=== PATIENT | female | born 1990 | race Caucasian/White ===

== ENCOUNTER 2017-05-24 03:34 | Emergency (ER) | payer BC, OTHER ==
[2017-05-24 04:40] LABS: Basophils % (A) 0 %; Eosinophils # (A) 0.2 k/uL (0-0.7); Eosinophils % (A) 2 %; HCT 31.5 % (34.0-46.0); HGB 10.2 gm/dL (11.4-16.0); Lymphocytes # (A) 1.3 k/uL (1.0-4.8); Lymphocytes % (A) 13 %; MCHC 32.5 g/dL (31.0-37.0); Mean Platelet Volume 7.4; Monocytes # (A) 0.5 k/uL (0-1.0); Monocytes % (A) 5 %; Neutrophils # (A) 7.9 k/uL (1.3-7.7); Neutrophils % (A) 78 %; Platelet Count 261 k/uL (150-450); RBC 3.93 m/uL (3.80-5.40); RDW 13.2 % (11.5-15.5)
[2017-05-24 04:45] LABS: Appearance,Urine Cloudy (Clear); Bacteria,Urine Rare /hpf; Bilirubin,Urine Negative (Negative); Blood,Urine Moderate (Negative); Color,Urine Yellow; Glucose,Urine (UA) Negative (Negative); Ketones,Urine Negative (Negative); Leukocyte Esterase,Urine Large (Negative); Mucus,Urine Rare /hpf; PH, Urine 6.5 (5.0-8.0); Protein,Urine 1+ (Negative); RBC,Urine 11 /hpf (0-5); Specific Gravity,Urine 1.024 (1.001-1.035); Squamous Epithelial Cell,Urine 17 /hpf (0-4); Urobilinogen,Urine <2.0 mg/dL (<2.0); WBC,Urine 15 /hpf (0-5)
[2017-05-24 04:49] LABS: ALT 16 U/L (9-52); AST 15 U/L (14-36); Alkaline Phosphatase 75 U/L (38-126); Amylase 40 U/L (30-110); Anion Gap 10 mmol/L; Blood Urea Nitrogen 12 mg/dL (7-17); Calcium 9.4 mg/dL (8.4-10.2); Carbon Dioxide 28 mmol/L (22-30); Chloride 102 mmol/L (98-107); Glucose 91 mg/dL (74-99); Lipase 29 U/L (23-300); Potassium 4.4 mmol/L (3.5-5.1); Sodium 140 mmol/L (137-145); Total Bilirubin 0.6 mg/dL (0.2-1.3); Total Protein 6.9 g/dL (6.3-8.2)
[2017-05-24] MEDS ORDERED: RX INFO: IV CONTRAST WAS GIVEN 1 EACH MISC MISCELLANE PRN (04:54)
[2017-05-24] MEDS ORDERED: KETOROLAC 30 MG/ML 1 ML VIAL IVP STA (05:30)
[2017-05-24] MEDS ORDERED: ONDANSETRON 4 MG/2 ML VIAL IVP STA (05:30)
--- NOTE | 2017-05-24 06:05 | CT ---
EXAM: CT Angiography Chest With Intravenous Contrast. CLINICAL HISTORY: Chest pain TECHNIQUE: Axial computed tomographic angiography images of the chest with intravenous contrast using pulmonary embolism protocol. CTDI is 70 mGy and DLP is 178.5 mGy-cm. This CT exam was performed using one or more of the following dose reduction techniques: automated exposure control, adjustment of the mA and/or kV according to patient size, and/or use of iterative reconstruction technique. MIP reconstructed images were created and reviewed. COMPARISON: No relevant prior studies available. FINDINGS: Pulmonary arteries: Unremarkable. No pulmonary embolism. Aorta: No acute findings. No thoracic aortic aneurysm. Lungs: Unremarkable. No mass. No consolidation. Pleural spaces: Unremarkable. No significant effusion. No pneumothorax. Heart: Unremarkable. No cardiomegaly. No significant pericardial effusion. No evidence of RV dysfunction. Bones: Unremarkable. No acute fracture. Lymph nodes: Unremarkable. No enlarged lymph nodes. IMPRESSION: Normal chest. No pulmonary embolism.
--- NOTE | 2017-05-24 06:43 | ED ---
General Adult HPI - General Source: patient Mode of arrival: ambulatory Limitations: no limitations - History of Present Illness Onset/Timin -: days(s) Location: chest Quality: sharp Consistency: intermittent Improves with: none Worsens with: other (Inspiration) Associated Symptoms: nausea/vomiting Treatments Prior to Arrival: none <Damián Pablo - Last Filed: 05/24/17 06:37> <Hayden Diaz - Last Filed: 05/24/17 08:01> - General Chief complaint: Abdominal Pain Stated complaint: Abd pain, painful breathing Time Seen by Provider: 05/24/17 03:53 - History of Present Illness Initial comments: This patient is a 26 year old woman who presents to be evaluated for pain to the right upper quadrant/right lower chest. She states that it started the previous night but was very mild. She describes it as intermittent, sharp pain that comes on when she takes a deep breath, and otherwise is maybe only minimally there. She she states that when she got ready go to work tonight the pain was more intense so she comes here to be evaluated. The patient also does have a little bit of associated nausea but has not had vomiting. She denies any change in bowel movements or urination. Last period was last month and normal. (Damián Pablo) - Related Data Home Medications Medication Instructions Recorded Confirmed No Known Home Medications [No 05/24/17 05/24/17 Known Home Medications] Allergies Allergy/AdvReac Type Severity Reaction Status Date / Time No Known Allergies Allergy Verified 05/24/17 03:39 Review of Systems ROS Other: All systems not noted in ROS Statement are negative. Constitutional: Denies: fever, chills Respiratory: Denies: cough, dyspnea, wheezes Cardiovascular: Reports: as per HPI, chest pain. Denies: palpitations, edema, syncope Gastrointestinal: Reports: as per HPI, abdominal pain, nausea. Denies: vomiting , diarrhea, melena, hematochezia Genitourinary: Denies: dysuria, hematuria, discharge, abnormal menses Musculoskeletal: Denies: back pain Skin: Denies: rash Neurological: Denies: headache, weakness, numbness <Damián Pablo - Last Filed: 05/24/17 06:37> ROS Other: All systems not noted in ROS Statement are negative. <Hayden Diaz - Last Filed: 05/24/17 08:01> ROS Statement: Those systems with pertinent positive or pertinent negative responses have been documented in the HPI. Past Medical History Past Medical History: No Reported History History of Any Multi-Drug Resistant Organisms: None Reported Past Surgical History: No Surgical Hx Reported Past Anesthesia/Blood Transfusion Reactions: No Reported Reaction Past Psychological History: No Psychological Hx Reported Smoking Status: Current every day smoker Past Alcohol Use History: None Reported Past Drug Use History: Marijuana - Past Family History Father Family Medical History: Diabetes Mellitus <BevDamián Filed: 05/24/17 06:37> General Exam Limitations: no limitations General appearance: alert, in no apparent distress Head exam: Present: atraumatic, normocephalic Eye exam: Present: normal appearance. Absent: scleral icterus, conjunctival injection ENT exam: Present: normal oropharynx Respiratory exam: Present: normal lung sounds bilaterally. Absent: respiratory distress, wheezes, rales, rhonchi, stridor, chest wall tenderness Cardiovascular Exam: Present: regular rate, normal rhythm, normal heart sounds. Absent: systolic murmur, diastolic murmur, rubs, gallop GI/Abdominal exam: Present: soft, tenderness, normal bowel sounds. Absent: distended, guarding, rebound, rigid, mass, pulsatile mass, hernia Extremities exam: Present: normal inspection, normal capillary refill. Absent: pedal edema, calf tenderness Back exam: Present: normal inspection. Absent: CVA tenderness (R), CVA tenderness (L) Neurological exam: Present: alert Skin exam: Present: warm, dry, intact, normal color. Absent: rash <BevDamián Filed: 05/24/17 06:37> Vital Signs 05/24/17 05/24/17 03:36 06:52 Temperature 97.9 F 99.0 F Pulse Rate 85 72 Respiratory 20 18 Rate Blood Pressure 122/67 102/53 O2 Sat by Pulse 100 98 Oximetry EKG Findings - EKG Results: EKG: interpreted by PALMIRA CLAY, sinus rhythm (Rate 66 bpm), normal axis, normal QRS, normal ST/T, no acute changes - VA, Pacemaker, Normal: Normal tracing: normal tracing <BevDamián Filed: 05/24/17 06:37> Medical Decision Making - Lab Data Result diagrams: 05/24/17 04:30 05/24/17 04:30 <Damián Pablo - Last Filed: 05/24/17 06:37> - Lab Data Result diagrams: 05/24/17 04:30 05/24/17 04:30 - Radiology Data Radiology results: report reviewed (Computed tomography scan of the chest negative for pulmonary embolism. Ultrasound of the abdomen shows no gallstones or evidence of cholecystitis.) <Hayden Diaz - Last Filed: 05/24/17 08:01> - Medical Decision Making Patient reevaluated and resting comfortably in bed. Patient states near symptom -free. Abdomen soft and nontender. No tenderness to right lower chest. Patient states significant improvement with Toradol. Patient states she believes symptoms were similar to a pulled muscle. Patient was updated on results and need for follow-up. (Hayden Diaz) - Lab Data Lab Results 05/24/17 05/24/17 05/24/17 Range/Units 03:45 03:45 04:30 WBC (3.8-10.6) k/uL RBC (3.80-5.40) m/uL Hgb (11.4-16.0) gm/dL Hct (34.0-46.0) % MCV (80.0-100.0) fL MCH (25.0-35.0) pg MCHC (31.0-37.0) g/dL RDW (11.5-15.5) % Plt Count (150-450) k/uL Neutrophils % % Lymphocytes % % Monocytes % % Eosinophils % % Basophils % % Neutrophils # (1.3-7.7) k/uL Lymphocytes # (1.0-4.8) k/uL Monocytes # (0-1.0) k/uL Eosinophils # (0-0.7) k/uL Basophils # (0-0.2) k/uL D-Dimer (<0.60) mg/L FEU Sodium 140 (137-145) mmol/L Potassium 4.4 (3.5-5.1) mmol/L Chloride 102 (98-107) mmol/L Carbon Dioxide 28 (22-30) mmol/L Anion Gap 10 mmol/L BUN 12 (7-17) mg/dL Creatinine 0.80 (0.52-1.04) mg/dL Est GFR (MDRD) Af Amer >60 (>60 ml/min/1.73 sqM) Est GFR (MDRD) Non-Af >60 (>60 ml/min/1.73 sqM) Glucose 91 (74-99) mg/dL Calcium 9.4 (8.4-10.2) mg/dL Total Bilirubin 0.6 (0.2-1.3) mg/dL AST 15 (14-36) U/L ALT 16 (9-52) U/L Alkaline Phosphatase 75 (38-126) U/L Total Protein 6.9 (6.3-8.2) g/dL Albumin 4.0 (3.5-5.0) g/dL Amylase 40 (30-110) U/L Lipase 29 (23-300) U/L Urine Color Yellow Urine Appearance Cloudy H (Clear) Urine pH 6.5 (5.0-8.0) Ur Specific [place] 1.024 (1.001-1.035) Urine Protein 1+ H (Negative) Urine Glucose (UA) Negative (Negative) Urine Ketones Negative (Negative) Urine Blood Moderate H (Negative) Urine Nitrite Negative (Negative) Urine Bilirubin Negative (Negative) Urine Urobilinogen <2.0 (<2.0) mg/dL Ur Leukocyte Esterase Large H (Negative) Urine RBC 11 H (0-5) /hpf Urine WBC 15 H (0-5) /hpf Ur Squamous Epith Cells 17 H (0-4) /hpf Urine Bacteria Rare H (None) /hpf Urine Mucus Rare H (None) /hpf Urine HCG, Qual Not Detected (Not Detectd) 05/24/17 05/24/17 Range/Units 04:30 04:30 WBC 10.0 (3.8-10.6) k/uL RBC 3.93 (3.80-5.40) m/uL Hgb 10.2 L (11.4-16.0) gm/dL Hct 31.5 L (34.0-46.0) % MCV 80.0 (80.0-100.0) fL MCH 26.0 (25.0-35.0) pg MCHC 32.5 (31.0-37.0) g/dL RDW 13.2 (11.5-15.5) % Plt Count 261 (150-450) k/uL Neutrophils % 78 % Lymphocytes % 13 % Monocytes % 5 % Eosinophils % 2 % Basophils % 0 % Neutrophils # 7.9 H (1.3-7.7) k/uL Lymphocytes # 1.3 (1.0-4.8) k/uL Monocytes # 0.5 (0-1.0) k/uL Eosinophils # 0.2 (0-0.7) k/uL Basophils # 0.0 (0-0.2) k/uL D-Dimer 1.71 H (<0.60) mg/L FEU Sodium (137-145) mmol/L Potassium (3.5-5.1) mmol/L Chloride (98-107) mmol/L Carbon Dioxide (22-30) mmol/L Anion Gap mmol/L BUN (7-17) mg/dL Creatinine (0.52-1.04) mg/dL Est GFR (MDRD) Af Amer (>60 ml/min/1.73 sqM) Est GFR (MDRD) Non-Af (>60 ml/min/1.73 sqM) Glucose (74-99) mg/dL Calcium (8.4-10.2) mg/dL Total Bilirubin (0.2-1.3) mg/dL AST (14-36) U/L ALT (9-52) U/L Alkaline Phosphatase (38-126) U/L Total Protein (6.3-8.2) g/dL Albumin (3.5-5.0) g/dL Amylase (30-110) U/L Lipase (23-300) U/L Urine Color Urine Appearance (Clear) Urine pH (5.0-8.0) Ur Specific [place] (1.001-1.035) Urine Protein (Negative) Urine Glucose (UA) (Negative) Urine Ketones (Negative) Urine Blood (Negative) Urine Nitrite (Negative) Urine Bilirubin (Negative) Urine Urobilinogen (<2.0) mg/dL Ur Leukocyte Esterase (Negative) Urine RBC (0-5) /hpf Urine WBC (0-5) /hpf Ur Squamous Epith Cells (0-4) /hpf Urine Bacteria (None) /hpf Urine Mucus (None) /hpf Urine HCG, Qual (Not Detectd) Disposition <Damián Pablo - Last Filed: 05/24/17 06:37> Time of Disposition: 08:01 <Hayden Diaz - Last Filed: 05/24/17 08:01> Clinical Impression: Chest wall pain Disposition: ADMITTED IP TO THIS [facility] Condition: Stable Instructions: Chest Pain (ED), Chest Wall Pain (ED) Additional Instructions: Please follow-up with primary care physician in the next couple of days for recheck. If discomfort continues she will need further evaluation. Return for increased pain, fever, vomiting, difficulty breathing, worsening or changing symptoms or other concerns. Referrals: Delmy Barrera MD [Primary Care Provider] - 1-2 days
--- NOTE | 2017-05-24 07:34 | US ---
EXAMINATION TYPE: US abdomen limited DATE OF EXAM: 05/24/2017 COMPARISON: CTA chest earlier today CLINICAL HISTORY: Pain, attention RUQ. pain, NPO EXAM MEASUREMENTS: Liver Length: 18.0 cm Gallbladder Wall: 0.3 cm CHD: 0.2 cm Right Kidney: 11.2 x 4.2 x 4.6 cm Pancreas: wnl Liver: appears upper limits in size Gallbladder: wnl Evidence for sonographic Johnson's sign: neg CBD: Obscured by overlying bowel gas CHD: wnl Right Kidney: No hydronephrosis or masses seen on images saved. IMPRESSION: No shadowing mobile gallstones or ultrasound evidence for acute cholecystitis.
[2017-05-24 08:23] VITALS: BP 122/62; PULSE 64; RESP 16; TEMP 97.8
== END 2017-05-24 08:22 | disposition home or self-care (01) ==
LOC: EC 03:34
DX: R07.89 Other chest pain (principal); R11.0 Nausea; F17.200 Nicotine dependence, unspecified, uncomplicated
CPT/HCPCS: 99284; 96374; 96375; 36415; 93005; 85379; 80053; 82150; 83690; 85025; 81001; 81025; 87086; 87077; 87186; 76705; 71275; Q9967; J2405; J1885

== ENCOUNTER 2018-02-25 18:14 | Emergency (ER) | payer OTHER ==
[2018-02-25 18:27] VITALS: BP 122/78; PULSE 81; RESP 18; TEMP 98.4
--- NOTE | 2018-02-25 19:13 | ED ---
Female Urogenital HPI - General Chief complaint: Urogenital Stated complaint: STD check Time Seen by Provider: 02/25/18 18:47 Source: patient, RN notes reviewed, old records reviewed Mode of arrival: ambulatory Limitations: no limitations - History of Present Illness Initial comments: 27-year-old female presents today with chief complaint of concern for positive ST testing. Patient reports he is told that someone she had intercourse with a few months ago had a positive HSV test which she reports no lesions. She denies any vaginal bleeding or discharge. Patient states that she is not currently . Last Menstrual Period: 01/21/18 - Related Data Home Medications Medication Instructions Recorded Confirmed No Known Home Medications 05/24/17 05/24/17 Allergies Allergy/AdvReac Type Severity Reaction Status Date / Time No Known Allergies Allergy Verified 02/25/18 18:23 Review of Systems ROS Statement: Those systems with pertinent positive or pertinent negative responses have been documented in the HPI. ROS Other: All systems not noted in ROS Statement are negative. Past Medical History Past Medical History: No Reported History History of Any Multi-Drug Resistant Organisms: None Reported Past Surgical History: No Surgical Hx Reported Past Anesthesia/Blood Transfusion Reactions: No Reported Reaction Past Psychological History: No Psychological Hx Reported Smoking Status: Current every day smoker Past Alcohol Use History: None Reported Past Drug Use History: Marijuana - Past Family History Father Family Medical History: Diabetes Mellitus General Exam - General Exam Comments Initial Comments: Well appearing 27 year old female, no distress. Limitations: no limitations General appearance: alert, in no apparent distress Head exam: Present: atraumatic, normocephalic, normal inspection Eye exam: Present: normal appearance, PERRL, EOMI. Absent: scleral icterus, conjunctival injection, periorbital swelling ENT exam: Present: normal exam, mucous membranes moist Neck exam: Present: normal inspection. Absent: tenderness, meningismus, lymphadenopathy Respiratory exam: Present: normal lung sounds bilaterally. Absent: respiratory distress, wheezes, rales, rhonchi, stridor Cardiovascular Exam: Present: regular rate, normal rhythm, normal heart sounds. Absent: systolic murmur, diastolic murmur, rubs, gallop, clicks External exam: Present: normal external exam Extremities exam: Present: normal inspection, full ROM, normal capillary refill. Absent: tenderness, pedal edema, joint swelling, calf tenderness Back exam: Present: normal inspection Neurological exam: Present: alert, oriented X3, CN II-XII intact Psychiatric exam: Present: normal affect, normal mood Course Vital Signs 02/25/18 18:23 Temperature 98.4 F Pulse Rate 81 Respiratory 18 Rate Blood Pressure 122/78 O2 Sat by Pulse 98 Oximetry Medical Decision Making - Medical Decision Making 27 year old fmelae with CC of [place] for her HSV status. She denies lesions. She reports that she had intercourse a few months ago with someone whom is positive for HSV. She denies vaginal disharge. Denies . Disucssed will draw blood for HSV and syphilis. Discussed checking urine for STDS and . UA appears contaminated 23 epitheal cells. Cultures obtained. Discussed when cultures come back, patient can call to be infromed of results. Discussed return parameters. - Lab Data Lab Results 02/25/18 02/25/18 02/25/18 Range/Units 19:20 19:20 19:20 Urine Color Yellow Urine Appearance Cloudy H (Clear) Urine pH 5.5 (5.0-8.0) Ur Specific [place] 1.015 (1.001-1.035) Urine Protein Negative (Negative) Urine Glucose (UA) Negative (Negative) Urine Ketones Negative (Negative) Urine Blood Negative (Negative) Urine Nitrite Negative (Negative) Urine Bilirubin Negative (Negative) Urine Urobilinogen <2.0 (<2.0) mg/dL Ur Leukocyte Esterase Moderate H (Negative) Urine RBC 2 (0-5) /hpf Urine WBC 8 H (0-5) /hpf Ur Squamous Epith Cells 23 H (0-4) /hpf Urine Bacteria Rare H (None) /hpf Urine Mucus Few H (None) /hpf Urine HCG, Qual Not Detected (Not Detectd) Treponema pallidum Ab (Non-Reactive) Chlamydia Source Urine Chlamydia DNA (PCR) Positive H (Neg,Equiv) HSV I&II IgM Ab (<=0.90) INDEX HSV I IgG Ab (< or = 0.90) HSV II IgG (< or = 0.90) N. gonorrhoeae Source Urine N.gonorrhoeae DNA Probe Negative (Neg,Equiv) 02/25/18 02/25/18 Range/Units 19:20 19:20 Urine Color Urine Appearance (Clear) Urine pH (5.0-8.0) Ur Specific Reading (1.001-1.035) Urine Protein (Negative) Urine Glucose (UA) (Negative) Urine Ketones (Negative) Urine Blood (Negative) Urine Nitrite (Negative) Urine Bilirubin (Negative) Urine Urobilinogen (<2.0) mg/dL Ur Leukocyte Esterase (Negative) Urine RBC (0-5) /hpf Urine WBC (0-5) /hpf Ur Squamous Epith Cells (0-4) /hpf Urine Bacteria (None) /hpf Urine Mucus (None) /hpf Urine HCG, Qual (Not Detectd) Treponema pallidum Ab Non-Reactive (Non-Reactive) Chlamydia Source Chlamydia DNA (PCR) (Neg,Equiv) HSV I&II IgM Ab 1.08 H (<=0.90) INDEX HSV I IgG Ab 20.10 H (< or = 0.90) HSV II IgG 0.13 (< or = 0.90) N. gonorrhoeae Source N.gonorrhoeae DNA Probe (Neg,Equiv) Disposition Clinical Impression: Concern about STD in female without diagnosis Disposition: HOME SELF-CARE Condition: Good Instructions: Sexually Transmitted Diseases (ED) Additional Instructions: Patient has follow-up with primary care physician. Return to emergency department if any alarming signs or symptoms occur. Is patient prescribed a controlled substance at d/c from ED?: No Referrals: Delmy Barrera MD [Primary Care Provider] - 1-2 days Time of Disposition: 20:02
[2018-02-25 20:01] LABS: Appearance,Urine Cloudy (Clear); Bacteria,Urine Rare /hpf; Bilirubin,Urine Negative (Negative); Blood,Urine Negative (Negative); Color,Urine Yellow; Glucose,Urine (UA) Negative (Negative); Ketones,Urine Negative (Negative); Leukocyte Esterase,Urine Moderate (Negative); Mucus,Urine Few /hpf; Nitrite,Urine Negative (Negative); PH, Urine 5.5 (5.0-8.0); Protein,Urine Negative (Negative); RBC,Urine 2 /hpf (0-5); Specific Gravity,Urine 1.015 (1.001-1.035); Squamous Epithelial Cell,Urine 23 /hpf (0-4); Urobilinogen,Urine <2.0 mg/dL (<2.0); WBC,Urine 8 /hpf (0-5)
[2018-02-26 15:55] LABS: C. trachomatis,PCR Positive (Neg,Equiv); Chlamydia trachomatis Source Urine; N. gonorrhoeae,PCR Negative (Neg,Equiv); Neisseria Source Urine
[2018-03-01 04:49] LABS: Herpes simplex I and/or II IgM 1.08 INDEX (<=0.90); Herpes simplex IgG I Ab 20.1 (< or = 0.90); Herpes simplex IgG II Ab 0.13 (< or = 0.90)
== END 2018-02-25 20:06 | disposition home or self-care (01) ==
LOC: EC 18:14
DX: Z20.2 Contact with and (suspected) exposure to infections with a predominantly sexual mode of transmission (principal); R82.998 Other abnormal findings in urine; F17.200 Nicotine dependence, unspecified, uncomplicated
CPT/HCPCS: 36415; 81001; 81025; 86694; 86695; 86696; 86780; 87491; 87591; 99284

== ENCOUNTER 2020-02-04 03:10 | Inpatient (IN) | payer OTHER ==
[2020-02-04] MEDS ORDERED: METHYLERGONOVINE 0.2 MG/ML 1 ML AMP IM PRN (03:23)
[2020-02-04] MEDS ORDERED: CARBOPROST TROMETHAMINE 250 MCG/ML 1 ML AMP IM PRN (03:23)
[2020-02-04] MEDS ORDERED: TERBUTALINE 1 MG/ML VIAL SQ PRN (03:23)
[2020-02-04] MEDS ORDERED: OXYTOCIN 10 UNIT/ML 1 ML VIAL IM PRN (03:23)
[2020-02-04] MEDS ORDERED: LIDOCAINE 0.5% (PF) 5 MG/ML (50 ML SDV) SQ PRN (03:23)
[2020-02-04] MEDS ORDERED: AMPICILLIN 2,000 MG in SODIUM CHLORIDE 0.9% 100 ML IVPB ONE (03:30)
[2020-02-04] MEDS ORDERED: LACTATED RINGERS 1,000 ML IV SCH (03:30)
[2020-02-04 04:07] LABS: Basophils # (A) 0.1 k/uL (0-0.2); Basophils % (A) 1 %; Eosinophils # (A) 0.2 k/uL (0-0.7); Eosinophils % (A) 1 %; HCT 33.1 % (34.0-46.0); HGB 11.1 gm/dL (11.4-16.0); Lymphocytes # (A) 1.5 k/uL (1.0-4.8); Lymphocytes % (A) 8 %; MCH 27.7 pg (25.0-35.0); MCHC 33.5 g/dL (31.0-37.0); MCV 82.5 fL (80.0-100.0); Mean Platelet Volume 8.2; Monocytes # (A) 0.9 k/uL (0-1.0); Monocytes % (A) 5 %; Neutrophils # (A) 14.8 k/uL (1.3-7.7); Neutrophils % (A) 84 %; Platelet Count 263 k/uL (150-450); RBC 4.01 m/uL (3.80-5.40); RDW 12.8 % (11.5-15.5); WBC 17.7 k/uL (3.8-10.6)
[2020-02-04 04:18] LABS: Amphetamine Screen,Urine Not Detected (NotDetected); Barbiturate Screen,Urine Not Detected (NotDetected); Benzodiazepines Screen,Urine Not Detected (NotDetected); Cocaine Screen,Urine Not Detected (NotDetected); Methadone Screen, Urine Not Detected (NotDetected); Opiate Screen,Urine Detected (NotDetected); Oxycodone Screen, Urine Not Detected (NotDetected); Phencyclidine Screen,Urine Not Detected (NotDetected); Tricyclic Antidepressant,Urine Not Detected (NotDetected); Urn Cannabinoid Scrn Detected (NotDetected)
--- NOTE | 2020-02-04 04:22 | P.HPOB ---
History of Present Illness H&P Date: 02/04/20 Chief Complaint: Contractions This patient is a 29-year-old 3 para 2 female estimated date of confinement 01/31/2020 estimated gestational age 40-4/7 weeks who presents to labor and delivery with complaints of contractions she states that she's been having all day long. Patient's care is per Dr. Crane anesthesia complicated by a daily marijuana use. Patient also had a positive Trichomonas at 35 weeks which was treated with a negative test to cure. He is also had a positive culture for group B strep. Patient is now 4 cm dilated and uncomfortable thought to be in active labor. Review of Systems Genitourinary: Reports Menstruation: Reports amenorrhea Past Medical History Past Medical History: No Reported History Additional Past Medical History / Comment(s): Patient has had 2 vaginal deliveries. History of Any Multi-Drug Resistant Organisms: None Reported Past Surgical History: No Surgical Hx Reported Additional Past Surgical History / Comment(s): [place] tooth extraction Past Anesthesia/Blood Transfusion Reactions: No Reported Reaction Past Psychological History: No Psychological Hx Reported Smoking Status: Current every day smoker Past Alcohol Use History: None Reported Past Drug Use History: Marijuana Additional Drug Use History / Comment(s): marijuana, xanax for anxiety and aderol - Past Family History Father Family Medical History: Diabetes Mellitus Medications and Allergies Home Medications Medication Instructions Recorded Confirmed Type No Known Home Medications 05/24/17 02/04/20 History Allergies Allergy/AdvReac Type Severity Reaction Status Date / Time No Known Allergies Allergy Verified 02/04/20 03:19 Exam Vital Signs Temp Pulse Resp BP 02/04/20 03:50 97.6 F 82 18 133/63 Intake and Output 02/03/20 02/03/20 02/04/20 14:59 22:59 06:59 Other: Weight 79.832 kg - OBG Physical Exam Vulva: both: normal Vagina: normal moisture, no discharge Cervix: lesion (Cervix on admission is 4 cm) Uterus: enlarged Results blood work shows she had a positive UDS in the first trimester for opiates and cannabinoids. blood work shows she is O positive, rubella immune, RPR nonreactive, hepatitis B negative, HIV is nonreactive, group B strep was positive, most recent ultrasound showed baby 6 lbs. 11 oz. Result Diagrams: 02/04/20 03:52 Abnormal Lab Results - Last 24 Hours (Table) 02/04/20 Range/Units 03:52 WBC 17.7 H (3.8-10.6) k/uL Hgb 11.1 L (11.4-16.0) gm/dL Hct 33.1 L (34.0-46.0) % Neutrophils # 14.8 H (1.3-7.7) k/uL Assessment and Plan Assessment: This is a 29-year-old 3 para 2 female 40-4/7 weeks' gestation in active labor. complicated by substance abuse. Patient very uncomfortable at this time however declines anything for pain control. Patient does have a positive group B strep culture therefore we'll administer IV antibiotics and anticipate vaginal delivery. (1) Postmaturity , 40-42 weeks gestation Current Visit: Yes Status: Acute Code(s): O48.0 - POST-TERM SNOMED Code(s): 25620021229266 (2) Normal labor Current Visit: Yes Status: Acute Code(s): O80 - ENCOUNTER FOR FULL-TERM UNCOMPLICATED DELIVERY; Z37.9 - OUTCOME OF DELIVERY, UNSPECIFIED SNOMED Code(s): 83235936 (3) Substance abuse affecting in third trimester, antepartum Current Visit: Yes Status: Acute Code(s): O99.323 - DRUG USE COMPLICATING , THIRD TRIMESTER SNOMED Code(s): 19774803
[2020-02-04 05:00] LABS: Uric Acid 3.5 mg/dL (3.7-7.4)
[2020-02-04] MEDS ORDERED: diphenhydrAMINE 25 MG CAP PO PRN (05:03)
[2020-02-04] MEDS ORDERED: ACETAMINOPHEN TAB 325 MG TAB PO PRN (05:03)
[2020-02-04] MEDS ORDERED: HYDROCORTISONE 2.5% RECTAL CREAM 30 GM TUBE RECTAL PRN (05:03)
[2020-02-04] MEDS ORDERED: IBUPROFEN 600 MG TAB PO PRN (05:03)
[2020-02-04] MEDS ORDERED: diphenhydrAMINE 50 MG/ML 1 ML VIAL IVP PRN (05:03)
[2020-02-04] MEDS ORDERED: BENZOCAINE/MENTHOL SPRAY 1 GM/SPRAY AEROSOL TOPICAL PRN (05:03)
[2020-02-04] MEDS ORDERED: SIMETHICONE 80 MG CHEWABLE PO PRN (05:03)
[2020-02-04] MEDS ORDERED: LANOLIN CREAM 5 GM TUBE TOPICAL PRN (05:03)
[2020-02-04] MEDS ORDERED: bisacodyL 10 MG SUPP RECTAL PRN (05:03)
[2020-02-04] MEDS ORDERED: ZOLPIDEM 5 MG TAB PO PRN (05:03)
--- NOTE | 2020-02-04 05:11 | P.PROBDLV ---
Vaginal Delivery Note - . Vaginal Delivery Note: Normal spontaneous vaginal delivery viable male infant Apgars 8 and 9 delivery time is 0450 hours. Please see dictated H&P for intimate details of this patient's admission. Brief summary this is a 29-year-old 3 para 2 female 40-4/7 weeks gestation admitted to labor and delivery in active labor. Patient was 4 cm dilated on admission was very uncomfortable however declined any pain medications including an epidural. Patient did have positive drug screen for marijuana and opiates. Patient's given IV antibiotics due to positive group B strep. She quickly however progresses and does have artificial rupture membranes for clear fluid. Patient approximately 9 cm begins pushing uncontrollably. She quickly pushes the head to the perineum. Posterior perineum is supported we have controlled delivery of 's head over the intact perineum. Mouth and nares are bulb suctioned at this time. Infant's head is right occiput anterior. With gentle downward traction we then have deliver the anterior and posterior shoulder and rest this 's body. This is a vigorous viable male infant Apgars are 8 and 9 delivery time is 0450 hours. After delivery of the the infant is late on the mother's abdomen. After a period of time, the umbili elva cord is doubly clamped and cut. It is evident that the umbilical cord is not attached well to the placenta and therefore have the patient push and she spontaneously delivers the placenta intact. Inspection of the placenta shows velamentous or membranous cord insertion. Placenta sent to pathology. Estimated blood loss is 100 mL. There is no lacerations and no repairs required. All counts correct 3. There are no complications. and mother stable delivery room.
[2020-02-04] MEDS ORDERED: OXYTOCIN 20 UNITS/1000 ML NS 1,000 ML IV SCH (05:15)
[2020-02-04 05:25] VITALS: RESP 16
[2020-02-04] MEDS ORDERED: SENNOSIDES-DOCUSATE SODIUM 1 EACH TAB PO SCH (08:00)
[2020-02-04] MEDS ORDERED: AMPICILLIN 1,000 MG in SODIUM CHLORIDE 0.9% 50 ML IVPB SCH (08:00)
[2020-02-04 15:12] VITALS: BP 110/58; PULSE 70; TEMP 98.3
--- NOTE | 2020-02-04 16:50 | P.DS ---
Providers Date of admission: 02/04/20 03:24 Expected date of discharge: 02/04/20 Attending physician: Bhanu Crane Primary care physician: Bhanu Crane [facility] Course: Rhonda was doing very well this afternoon. As she is a smoker and want to go have a cigarette and was not able to leave the floor for cigarette she is decided she wants to be discharged home. He'll her lochia was reported light and she had no other signs or symptoms or issues. He discharge her to home day 0 as her baby is in special care nursery anyway. Vital signs are stable and afebrile. She will follow up with me in 6 weeks. Prescription for a breast pump was provided. Patient Condition at Discharge: Good Plan - Discharge Summary New Discharge Prescriptions: No Action No Known Home Medications Discharge Medication List No Known Home Medications 05/24/17 [History] Discharge Disposition: HOME SELF-CARE
== END 2020-02-04 15:23 | disposition home or self-care (01) | DRG 806 ==
LOC: FBPOP 03:10 → 4FBP 03:24
PROVIDERS: ADMIT Obstetrics & Gynecology; ATTEND Obstetrics & Gynecology
PROC: 10907ZC Drainage of Amniotic Fluid, Therapeutic from Products of Conception, Via Natural or Artificial Opening (ICD-10-PCS; principal; 2020-02-04)
PROC: 10E0XZZ Delivery of Products of Conception, External Approach (ICD-10-PCS; principal; 2020-02-04)
DX: O48.0 Post-term pregnancy (principal); O98.32 Other infections with a predominantly sexual mode of transmission complicating childbirth; Z37.0 Single live birth; O99.324 Drug use complicating childbirth; A59.9 Trichomoniasis, unspecified; O99.334 Smoking (tobacco) complicating childbirth; F12.90 Cannabis use, unspecified, uncomplicated; F17.200 Nicotine dependence, unspecified, uncomplicated; Z3A.40 40 weeks gestation of pregnancy; Z83.3 Family history of diabetes mellitus; O43.123 Velamentous insertion of umbilical cord, third trimester; O99.824 Streptococcus B carrier state complicating childbirth; O99.344 Other mental disorders complicating childbirth; F41.9 Anxiety disorder, unspecified
CPT/HCPCS: 59025; 80306; 83615; 84450; 84460; 84550; 85025; 86850; 86900; 86901; 99213

== ENCOUNTER → 2020-05-27 | Outpatient (CLI) | payer OTHER | END | disposition home or self-care (01) | LOC: LABWHC1 13:16 | PROVIDERS: ATTEND Obstetrics & Gynecology | DX: N93.8 Other specified abnormal uterine and vaginal bleeding (principal) | CPT/HCPCS: 36415; 84702 ==

== ENCOUNTER 2021-01-22 13:29 | Emergency (ER) | payer OTHER ==
[2021-01-22 13:39] VITALS: TEMP 97.5
--- NOTE | 2021-01-22 15:18 | ED ---
General Adult HPI - General Chief complaint: Upper Respiratory Infection Stated complaint: Upper Resp Time Seen by Provider: 01/22/21 15:09 Source: patient, RN notes reviewed, old records reviewed Mode of arrival: ambulatory Limitations: no limitations - History of Present Illness Initial comments: 30-year-old female presenting for evaluation of runny nose, congestion, sore throat. Symptoms have been present for the past 2 days. Patient denies fever. She denies dyspnea. She denies abdominal pain nausea or vomiting. Patient is otherwise healthy with no chronic medical conditions. She denies dysuria or hematuria. Patient states that her 1-year-old may have a slight runny nose which she attributed to teething. Otherwise no known sick contacts. She has not had coronavirus and no specific known contacts. - Related Data Home Medications Medication Instructions Recorded Confirmed No Known Home Medications 05/24/17 02/04/20 Allergies Allergy/AdvReac Type Severity Reaction Status Date / Time No Known Allergies Allergy Verified 01/22/21 13:36 Review of Systems ROS Statement: Those systems with pertinent positive or pertinent negative responses have been documented in the HPI. ROS Other: All systems not noted in ROS Statement are negative. Past Medical History Past Medical History: No Reported History Additional Past Medical History / Comment(s): Patient has had 2 vaginal deliveries. History of Any Multi-Drug Resistant Organisms: None Reported Past Surgical History: No Surgical Hx Reported Additional Past Surgical History / Comment(s): [place] tooth extraction Past Anesthesia/Blood Transfusion Reactions: No Reported Reaction Past Psychological History: No Psychological Hx Reported Smoking Status: Current every day smoker Past Alcohol Use History: None Reported Past Drug Use History: Marijuana - Past Family History Father Family Medical History: Diabetes Mellitus General Exam Limitations: no limitations General appearance: alert, in no apparent distress, appears intoxicated Head exam: Present: atraumatic, normocephalic Eye exam: Present: normal appearance, PERRL ENT exam: Absent: normal oropharynx (Mild bilateral pharyngeal erythema, no tonsillar swelling or exudate mild nasal congestion) Neck exam: Present: normal inspection. Absent: tenderness, meningismus Respiratory exam: Present: normal lung sounds bilaterally. Absent: respiratory distress, wheezes Cardiovascular Exam: Present: regular rate, normal rhythm GI/Abdominal exam: Present: soft. Absent: distended, tenderness, guarding Extremities exam: Present: normal inspection, normal capillary refill. Absent: pedal edema Neurological exam: Present: alert, oriented X3, CN II-XII intact. Absent: motor sensory deficit Psychiatric exam: Present: normal affect, normal mood Skin exam: Present: warm, dry, intact. Absent: cyanosis, diaphoretic Course Vital Signs 01/22/21 01/22/21 13:36 15:16 Temperature 97.5 F L Pulse Rate 75 Respiratory 20 22 Rate Blood Pressure 119/66 O2 Sat by Pulse 100 Oximetry Medical Decision Making - Medical Decision Making This is a well-appearing 30-year-old with 2 days of cough and congestion mild sore throat. Patient does test negative for coronavirus in the emergency department. She has no dyspnea, she's 100% on room air. Patient is otherwise healthy. She's given return parameters, she will monitor her symptoms and follow-up with her primary care physician. - Lab Data Lab Results 01/22/21 Range/Units 13:41 Coronavirus (PCR) Not Detected (Not Detectd) Disposition Clinical Impression: Viral infection Disposition: HOME SELF-CARE Condition: Good Instructions (If sedation given, give patient instructions): Upper Respiratory Infection (ED) Is patient prescribed a controlled substance at d/c from ED?: No Referrals: None,Stated [Primary Care Provider] - 1-2 days Chikis Davis MD [STAFF PHYSICIAN] - 1-2 days Time of Disposition: 15:18
[2021-01-22 15:33] VITALS: BP 121/81; PULSE 71; RESP 16
== END 2021-01-22 15:33 | disposition home or self-care (01) ==
LOC: EC 13:29
DX: B34.9 Viral infection, unspecified (principal); F17.200 Nicotine dependence, unspecified, uncomplicated; F12.90 Cannabis use, unspecified, uncomplicated; Z20.822 Contact with and (suspected) exposure to COVID-19
CPT/HCPCS: 87635; 99283

== ENCOUNTER 2022-03-21 18:52 | Emergency (ER) | payer OTHER ==
[2022-03-21 20:01] VITALS: BP 121/88; PULSE 70; RESP 18; TEMP 98.6
== END 2022-03-22 01:53 | disposition left against medical advice (07) ==
LOC: EC 18:52
DX: Z53.21 Procedure and treatment not carried out due to patient leaving prior to being seen by health care provider (principal)
CPT/HCPCS: 87636; 99499

== ENCOUNTER 2022-06-05 21:21 | Emergency (ER) | payer OTHER ==
[2022-06-05 21:46] VITALS: BP 138/85; PULSE 82; RESP 16; TEMP 99.1
[2022-06-05] MEDS ORDERED: KETOROLAC 15 MG/ML 1 ML VIAL IVP STA (22:18)
[2022-06-05] MEDS ORDERED: SODIUM CHLORIDE 0.9% 1,000 ML IV STA (22:18)
[2022-06-05] MEDS ORDERED: ONDANSETRON 4 MG/2 ML VIAL IVP STA (22:18)
--- NOTE | 2022-06-05 22:24 | ED ---
Abdominal Pain HPI - General Chief Complaint: Nausea/Vomiting/Diarrhea Stated Complaint: Nausea, Vomiting, Diarrhea Time Seen by Provider: 06/05/22 22:12 Source: patient, RN notes reviewed Mode of arrival: ambulatory Limitations: no limitations - History of Present Illness Initial Comments: This is a 31-year-old female who presents to the emergency department for abdominal pain. States that this started at around 4 AM. Pain is in the epigastric region. In addition to the pain, she has had nausea, vomiting, and diarrhea. Denies any blood in her stool or vomit. Also denies any history of similar symptoms in the past. She's been unable to keep anything down at this point. Denies any fevers or chills. Does not believe that she's been around an yone sick or had anything strange to eat. Denies any fevers, chills, sore throat, cough, dyspnea, chest pain, palpitations, back pain, or headaches. MD Complaint: abdominal pain Location: LUQ, RUQ, epigastric Associated Symptoms: nausea, vomiting, diarrhea - Related Data Previous Rx's Medication Instructions Recorded Acetaminophen-Codeine 300-30mg 1 each PO Q4H PRN #10 tablet 05/16/21 [Tylenol w/codeine #3] Baclofen [Lioresal] 10 mg PO TID PRN #20 tablet 05/16/21 Diclofenac Sodium [Voltaren] 50 mg PO TID PRN #20 tab 05/16/21 Dicyclomine [Bentyl] 10 mg PO TID PRN #15 capsule 06/06/22 Ondansetron Odt [Zofran Odt] 4 mg PO Q8HR PRN #15 tab 06/06/22 Allergies Allergy/AdvReac Type Severity Reaction Status Date / Time No Known Allergies Allergy Verified 05/16/21 01:27 Review of Systems ROS Statement: Those systems with pertinent positive or pertinent negative responses have been documented in the HPI. ROS Other: All systems not noted in ROS Statement are negative. Past Medical History Past Medical History: No Reported History Additional Past Medical History / Comment(s): Patient has had 2 vaginal deliveries. History of Any Multi-Drug Resistant Organisms: None Reported Past Surgical History: No Surgical Hx Reported Additional Past Surgical History / Comment(s): [place] tooth extraction Past Anesthesia/Blood Transfusion Reactions: No Reported Reaction Past Psychological History: No Psychological Hx Reported Smoking Status: Current every day smoker Past Alcohol Use History: Rare Past Drug Use History: Marijuana - Past Family History Father Family Medical History: Diabetes Mellitus General Exam Limitations: no limitations General appearance: alert, in no apparent distress Head exam: Present: atraumatic, normocephalic, normal inspection Respiratory exam: Present: normal lung sounds bilaterally. Absent: respiratory distress, wheezes, rales, rhonchi, stridor Cardiovascular Exam: Present: regular rate, normal rhythm, normal heart sounds. Absent: systolic murmur, diastolic murmur, rubs, gallop, clicks GI/Abdominal exam: Present: soft, tenderness (Epigastric, RUQ, LUQ), normal bowel sounds. Absent: distended Neurological exam: Present: alert, oriented X3, CN II-XII intact Psychiatric exam: Present: normal affect, normal mood Skin exam: Present: warm, dry, intact, normal color. Absent: rash Course Vital Signs 06/05/22 21:42 Temperature 99.1 F Pulse Rate 82 Respiratory 16 Rate Blood Pressure 138/85 O2 Sat by Pulse 99 Oximetry Medical Decision Making - Medical Decision Making This is a 31-year-old female who presents to the emergency department for abdominal pain. Was pt. sent in by a medical professional or institution? @ -No Did you speak to anyone other than the patient for history? @ -No Did you review nursing and triage notes? @ -Yes, and I agree, it is accurate with regards to the patient's symptoms. Were old charts reviewed? @ -No Differential Diagnosis? @ -Differential Abdominal Pain Women: Appendicitis, Cholecystitis, diverticulosis, ischemic bowel, pancreatitis, hepatitis, UTI, gastroenteritis, AAA, incarcerated hernia, bowel obstruction, constipation, inflammatory bowel, hepatitis, peptic ulcer disease, splenic infarction, perforated viscus, vulvitis, ovarian torsion, PID, kidney stone, placenta abruption, this is not meant to be an all-inclusive list U/S interpreted by me (1pt. min.)? @ -Gallbladder ultrasound obtained. My interpretation identifies no evidence of cholelithiasis or gallbladder wall thickening. What testing was considered but not performed? (CT, X-rays, U/S, labs)? Why? @ -None What meds were considered but not given? Why? @ -None Did you discuss the management of the patient with other professionals? @ -No Did you reconcile home meds? @ -No Was smoking cessation discussed for >3mins.? @ -No Was critical care preformed (if so, how long)? @ -No Were there social determinants of health that impacted care today? How? (Homelessness, low income, unemployed, alcoholism, drug addiction, transportat ion, low edu. Level, literacy, decrease access to med. care, [facility], rehab)? @ -No Was there de-escalation of care discussed even if they declined? (Discuss DNR or withdrawal of care, Hospice)? @ -No What co-morbidities impacted this encounter? (DM, HTN, Smoking, COPD, CAD, Cancer, CVA, Hep., AIDS, mental health diagnosis, sleep apnea, morbid obesity)? @ -Smoking Was patient admitted / discharged? @ -Discharged. Lab work obtained and found to be nonactionable. Gallbladder ultrasound obtained revealing no acute findings. Results discussed with the patient in that she likely has some sort of viral infection. She was initially treated with IV fluids, Toradol, and Zofran. States that her nausea resolved, however she continued to have some abdominal pain. She was subsequently given Pepcid and Bentyl. States that this helped the pain much more. She was able to drink water and eat Jell-O without difficulty. Prescriptions for Zofran and Bentyl provided with dosing instructions reviewed. She is otherwise advised to slowly advance her diet as tolerated and remain well-hydrated. Undiagnosed new problem with uncertain prognosis? @ -None Drug Therapy requiring intensive monitoring for toxicity (Heparin, Nitro, Insulin, Cardizem)? @ -None Were any procedures done? @ -None Diagnosis/symptom? @ -Gastroenteritis Acute, or Chronic, or Acute on Chronic? @ -Acute Uncomplicated (without systemic symptoms) or Complicated (systemic symptoms)? @ -Uncomplicated Side effects of treatment? @ -None Exacerbation, Progression, or Severe Exacerbation] @ -Not applicable Poses a threat to life or bodily function? @ -No Return precautions reviewed in depth, the patient is instructed to return to the emergency department with any new, worsening, or concerning symptoms. Patient verbalized understanding. This case was discussed in detail with the attending ED physician, Dr. Navarro. Presentation, findings, and treatment plan discussed in detail as well. - Lab Data Result diagrams: 06/05/22 22:27 06/05/22 22:27 Lab Results 06/05/22 06/05/22 06/05/22 Range/Units 22:27 22:27 22:27 WBC 7.1 (3.8-10.6) k/uL RBC 4.74 (3.80-5.40) m/uL Hgb 10.4 L (11.4-16.0) gm/dL Hct 33.8 L (34.0-46.0) % MCV 71.3 L (80.0-100.0) fL MCH 22.0 L (25.0-35.0) pg MCHC 30.9 L (31.0-37.0) g/dL RDW 14.8 (11.5-15.5) % Plt Count 245 (150-450) k/uL MPV 8.3 Neutrophils % 82 % Lymphocytes % 11 % Monocytes % 4 % Eosinophils % 2 % Basophils % 1 % Neutrophils # 5.8 (1.3-7.7) k/uL Lymphocytes # 0.8 L (1.0-4.8) k/uL Monocytes # 0.3 (0-1.0) k/uL Eosinophils # 0.1 (0-0.7) k/uL Basophils # 0.0 (0-0.2) k/uL Hypochromasia Moderate Microcytosis Moderate PT 9.9 (9.0-12.0) sec INR 0.9 (<1.2) APTT 24.0 (22.0-30.0) sec Sodium 136 L (137-145) mmol/L Potassium 4.0 (3.5-5.1) mmol/L Chloride 105 (98-107) mmol/L Carbon Dioxide 27 (22-30) mmol/L Anion Gap 4 mmol/L BUN 13 (7-17) mg/dL Creatinine 0.71 (0.52-1.04) mg/dL Est GFR (CKD-EPI)AfAm >90 (>60 ml/min/1.73 sqM) Est GFR (CKD-EPI)NonAf >90 (>60 ml/min/1.73 sqM) Glucose 91 (74-99) mg/dL Plasma Lactic Acid Danny (0.7-2.0) mmol/L Calcium 9.4 (8.4-10.2) mg/dL Total Bilirubin 1.0 (0.2-1.3) mg/dL AST 23 (14-36) U/L ALT 14 (4-34) U/L Alkaline Phosphatase 68 (38-126) U/L Total Protein 7.5 (6.3-8.2) g/dL Albumin 4.6 (3.5-5.0) g/dL Amylase 50 (30-110) U/L Lipase 27 (23-300) U/L Urine Color Urine Appearance (Clear) Urine pH (5.0-8.0) Ur Specific [place] (1.001-1.035) Urine Protein (Negative) Urine Glucose (UA) (Negative) Urine Ketones (Negative) Urine Blood (Negative) Urine Nitrite (Negative) Urine Bilirubin (Negative) Urine Urobilinogen (<2.0) mg/dL Ur Leukocyte Esterase (Negative) Urine RBC (0-5) /hpf Urine WBC (0-5) /hpf Ur Squamous Epith Cells (0-4) /hpf Urine Bacteria (None) /hpf Urine Mucus (None) /hpf Urine HCG, Qual (Not Detectd) 06/05/22 06/05/22 06/05/22 Range/Units 22:27 23:27 23:27 WBC (3.8-10.6) k/uL RBC (3.80-5.40) m/uL Hgb (11.4-16.0) gm/dL Hct (34.0-46.0) % MCV (80.0-100.0) fL MCH (25.0-35.0) pg MCHC (31.0-37.0) g/dL RDW (11.5-15.5) % Plt Count (150-450) k/uL MPV Neutrophils % % Lymphocytes % % Monocytes % % Eosinophils % % Basophils % % Neutrophils # (1.3-7.7) k/uL Lymphocytes # (1.0-4.8) k/uL Monocytes # (0-1.0) k/uL Eosinophils # (0-0.7) k/uL Basophils # (0-0.2) k/uL Hypochromasia Microcytosis PT (9.0-12.0) sec INR (<1.2) APTT (22.0-30.0) sec Sodium (137-145) mmol/L Potassium (3.5-5.1) mmol/L Chloride (98-107) mmol/L Carbon Dioxide (22-30) mmol/L Anion Gap mmol/L BUN (7-17) mg/dL Creatinine (0.52-1.04) mg/dL Est GFR (CKD-EPI)AfAm (>60 ml/min/1.73 sqM) Est GFR (CKD-EPI)NonAf (>60 ml/min/1.73 sqM) Glucose (74-99) mg/dL Plasma Lactic Acid Danny 0.6 L (0.7-2.0) mmol/L Calcium (8.4-10.2) mg/dL Total Bilirubin (0.2-1.3) mg/dL AST (14-36) U/L ALT (4-34) U/L Alkaline Phosphatase (38-126) U/L Total Protein (6.3-8.2) g/dL Albumin (3.5-5.0) g/dL Amylase (30-110) U/L Lipase (23-300) U/L Urine Color Yellow Urine Appearance Cloudy H (Clear) Urine pH 6.0 (5.0-8.0) Ur Specific [place] 1.028 (1.001-1.035) Urine Protein 1+ H (Negative) Urine Glucose (UA) Negative (Negative) Urine Ketones Trace H (Negative) Urine Blood Negative (Negative) Urine Nitrite Negative (Negative) Urine Bilirubin Negative (Negative) Urine Urobilinogen <2.0 (<2.0) mg/dL Ur Leukocyte Esterase Trace H (Negative) Urine RBC 1 (0-5) /hpf Urine WBC 8 H (0-5) /hpf Ur Squamous Epith Cells 31 H (0-4) /hpf Urine Bacteria Rare H (None) /hpf Urine Mucus Many H (None) /hpf Urine HCG, Qual Not Detected (Not Detectd) - Radiology Data Radiology results: report reviewed, image reviewed Disposition Clinical Impression: Gastroenteritis Disposition: HOME SELF-CARE Instructions (If sedation given, give patient instructions): Gastroenteritis (ED) Additional Instructions: Return to the emergency department with any new, worsening, or concerning symptoms. You can take the Zofran up to every 8 hours as needed for nausea and vomiting. You can use the Bentyl up to 3 times daily as needed for abdominal pain/cramping. Slowly advance your diet as tolerated and remain well-hydrated. Follow up with your primary care provider in 1-2 days. Prescriptions: Dicyclomine [Bentyl] 10 mg PO TID PRN #15 capsule PRN Reason: Pain Ondansetron Odt [Zofran Odt] 4 mg PO Q8HR PRN #15 tab PRN Reason: Nausea And Vomiting Is patient prescribed a controlled substance at d/c from ED?: No Referrals: Chikis Davis MD [Primary Care Provider] - 1-2 days
[2022-06-05 22:38] LABS: Basophils % (A) 1 %; Eosinophils # (A) 0.1 k/uL (0-0.7); Eosinophils % (A) 2 %; HCT 33.8 % (34.0-46.0); HGB 10.4 gm/dL (11.4-16.0); Hypochromasia Moderate; Lymphocytes # (A) 0.8 k/uL (1.0-4.8); Lymphocytes % (A) 11 %; MCHC 30.9 g/dL (31.0-37.0); MCV 71.3 fL (80.0-100.0); Mean Platelet Volume 8.3; Microcytosis Moderate; Monocytes # (A) 0.3 k/uL (0-1.0); Monocytes % (A) 4 %; Neutrophils # (A) 5.8 k/uL (1.3-7.7); Neutrophils % (A) 82 %; Platelet Count 245 k/uL (150-450); RBC 4.74 m/uL (3.80-5.40); RDW 14.8 % (11.5-15.5); WBC 7.1 k/uL (3.8-10.6)
[2022-06-05 22:48] LABS: ALT 14 U/L (4-34); AST 23 U/L (14-36); African American GFR (CKD) >90 (>60 ml/min/1.73 sqM); Albumin 4.6 g/dL (3.5-5.0); Alkaline Phosphatase 68 U/L (38-126); Amylase 50 U/L (30-110); Anion Gap 4 mmol/L; Blood Urea Nitrogen 13 mg/dL (7-17); Calcium 9.4 mg/dL (8.4-10.2); Carbon Dioxide 27 mmol/L (22-30); Chloride 105 mmol/L (98-107); Glucose 91 mg/dL (74-99); Lipase 27 U/L (23-300); Non-African American GFR(CKD) >90 (>60 ml/min/1.73 sqM); Sodium 136 mmol/L (137-145); Total Protein 7.5 g/dL (6.3-8.2)
[2022-06-05 22:52] LABS: INR 0.9 (<1.2); Prothrombin Time 9.9 sec (9.0-12.0)
--- NOTE | 2022-06-05 23:34 | US ---
EXAMINATION TYPE: US gallbladder DATE OF EXAM: 06/05/2022 COMPARISON: 05/24/17 CLINICAL HISTORY: Epigastric pain. N,V,D today TECHNIQUE: Multiple sonographic images of the right upper quadrant are obtained. FINDINGS: EXAM MEASUREMENTS: Liver Length: 16.1 cm Gallbladder Wall: 0.19 cm CBD: 0.22 cm Right Kidney: 9.6 x 4.5 x 4.3 cm PLUMBERS AND TOP HELPERS NOTES: Pancreas: wnl Liver: wnl Gallbladder: wnl Evidence for sonographic Johnson's sign: No CBD: wnl Right Kidney: wnl IMPRESSION: No gallstones or dilated ducts. No focal liver defect. Normal right kidney.
[2022-06-05 23:42] LABS: Appearance,Urine Cloudy (Clear); Bacteria,Urine Rare /hpf; Bilirubin,Urine Negative (Negative); Blood,Urine Negative (Negative); Color,Urine Yellow; Glucose,Urine (UA) Negative (Negative); Ketones,Urine Trace (Negative); Leukocyte Esterase,Urine Trace (Negative); Mucus,Urine Many /hpf; Nitrite,Urine Negative (Negative); Protein,Urine 1+ (Negative); RBC,Urine 1 /hpf (0-5); Specific Gravity,Urine 1.028 (1.001-1.035); Squamous Epithelial Cell,Urine 31 /hpf (0-4); Urobilinogen,Urine <2.0 mg/dL (<2.0); WBC,Urine 8 /hpf (0-5)
[2022-06-05] MEDS ORDERED: DICYCLOMINE 10 MG CAP PO STA (23:45)
[2022-06-05] MEDS ORDERED: FAMOTIDINE 20 MG/2 ML VIAL IV STA (23:45)
[2022-06-05] MEDS ORDERED: ONDANSETRON 4 MG ODT STARTER PACK 2 TAB BTL PO STA (23:45)
== END 2022-06-06 00:44 | disposition home or self-care (01) ==
LOC: EC 21:21
DX: K52.9 Noninfective gastroenteritis and colitis, unspecified (principal); F17.200 Nicotine dependence, unspecified, uncomplicated; F12.90 Cannabis use, unspecified, uncomplicated
CPT/HCPCS: 36415; 80053; 82150; 83605; 83690; 85025; 85610; 85730; 81001; 81025; 76705; 99284; 96374; 96375 ×2; 96361; J2405; J1885; S0119

== ENCOUNTER 2022-11-28 08:51 | Emergency (ER) | payer OTHER ==
--- NOTE | 2022-11-28 09:54 | ED ---
General Adult HPI - General Chief complaint: ENT Stated complaint: nose running Time Seen by Provider: 11/28/22 09:14 Source: patient Mode of arrival: ambulatory Limitations: no limitations - History of Present Illness Initial comments: Dictation was produced using [employer] dictation software. please excuse any grammatical, word or spelling errors. Chief Complaint: 32-year-old female with a runny nose History of Present Illness: 32-year-old female she has 2 days of rhinorrhea. Denies any nasal congestion. No sore throat. No headache. No fever or constitutional symptoms The ROS documented in this emergency department record has been reviewed and confirmed by me. Those systems with pertinent positive or negative responses h ave been documented in the HPI. All other systems are other negative and/or noncontributory. - Related Data Previous Rx's Medication Instructions Recorded Acetaminophen-Codeine 300-30mg 1 each PO Q4H PRN #10 tablet 05/16/21 [Tylenol w/codeine #3] Baclofen [Lioresal] 10 mg PO TID PRN #20 tablet 05/16/21 Diclofenac Sodium [Voltaren] 50 mg PO TID PRN #20 tab 05/16/21 Dicyclomine [Bentyl] 10 mg PO TID PRN #15 capsule 06/06/22 Ondansetron Odt [Zofran Odt] 4 mg PO Q8HR PRN #15 tab 06/06/22 Allergies Allergy/AdvReac Type Severity Reaction Status Date / Time No Known Allergies Allergy Verified 11/28/22 09:12 Review of Systems ROS Statement: Those systems with pertinent positive or pertinent negative responses have been documented in the HPI. ROS Other: All systems not noted in ROS Statement are negative. Past Medical History Past Medical History: No Reported History Additional Past Medical History / Comment(s): Patient has had 2 vaginal deliveries. History of Any Multi-Drug Resistant Organisms: None Reported Past Surgical History: No Surgical Hx Reported Additional Past Surgical History / Comment(s): [place] tooth extraction Past Anesthesia/Blood Transfusion Reactions: No Reported Reaction Past Psychological History: No Psychological Hx Reported Smoking Status: Vaper Past Alcohol Use History: Rare Past Drug Use History: Marijuana - Past Family History Father Family Medical History: Diabetes Mellitus General Exam - General Exam Comments Initial Comments: PHYSICAL EXAM: General Impression: Alert and oriented x3, not in acute distress HEENT: Normocephalic atraumatic, extra-ocular movements intact, pupils equal and reactive to light bilaterally, mucous membranes moist. Cardiovascular: Heart regular rate and rhythm Chest: Able to complete full sentences, no retractions, no tachypnea Abdomen: abdomen soft, non-tender, non-distended, no organomegaly Musculoskeletal: Pulses present and equal in all extremities, no peripheral edema Motor: no focal deficits noted Neurological: CN II-XII grossly intact, no focal motor or sensory deficits noted Skin: Intact with no visualized rashes Psych: Normal affect and mood Limitations: no limitations Course Vital Signs 11/28/22 09:10 Temperature 98.4 F Pulse Rate 75 Respiratory 18 Rate Blood Pressure 117/79 O2 Sat by Pulse 99 Oximetry Medical Decision Making - Medical Decision Making Was pt. sent in by a medical professional or institution (, PA, PARTS SALES ADVISOR, urgent care, hospital, or fpc...) When possible be specific @ -No Did you speak to anyone other than the patient for history (EMS, parent, family, police, friend...)? What history was obtained from this source @ -No Did you review nursing and triage notes (agree or disagree)? Why? @ -I reviewed and agree with nursing and triage notes Were old charts reviewed (outside hosp., previous admission, EMS record, old EKG, old radiological studies, urgent care reports/EKG's, fpc records)? Report findings @ -No old charts were reviewed Differential Diagnosis (chest pain, altered mental status, abdominal pain women, abdominal pain men, vaginal bleeding, musculoskeletal, weakness, fever, dyspnea, syncope, headache, dizziness, GI bleed, back pain, seizure, CVA, palpatations, mental health)? @ -not applicable EKG interpreted by me (3pts min.). @ -None done X-rays interpreted by me (1pt min.). @ -None done CT interpreted by me (1pt min.). @ -None done U/S interpreted by me (1pt. min.). @ -None done What testing was considered but not performed or refused? (CT, X-rays, U/S, labs)? Why? @ -None What meds were considered but not given or refused? Why? @ -None Did you discuss the management of the patient with other professionals (professionals i.e. , PA, PARTS SALES ADVISOR, lab, RT, psych nurse, social media designer, invoice clerk, teacher, traffic maintenance officer, showcase trimmer)? Give summary @ -No Was smoking cessation discussed for >3mins.? @ -No Was critical care preformed (if so, how long)? @ -No Were there social determinants of health that impacted care today? How? (Homelessness, low income, unemployed, alcoholism, drug addiction, transportation, low edu. Level, literacy, decrease access to med. care, [facility], rehab)? @ -No Was there de-escalation of care discussed even if they declined (Discuss DNR or withdrawal of care, Hospice)? DNR status @ -No What co-morbidities impacted this encounter? (DM, HTN, Smoking, COPD, CAD, Cancer, CVA, ARF, Chemo, Hep., AIDS, mental health diagnosis, sleep apnea, morbid obesity)? @ -None Was patient admitted / discharged? Hospital course, mention meds given and route, prescriptions, significant lab abnormalities, going to OR and other pertinent info. @ -32 Year-old female presents with 1-2 days of rhinorrhea. Oral testing is negative. Clinical presentation consistent with viral rhinitis. Patient discharged Undiagnosed new problem with uncertain prognosis? @ -No Drug Therapy requiring intensive monitoring for toxicity (Heparin, Nitro, Insulin, Cardizem)? @ -No Were any procedures done? @ -No Diagnosis/symptom? Acute, or Chronic, or Acute on Chronic? Uncomplicated (without systemic symptoms) or Complicated (systemic symptoms)? @ - rhinitis Side effects of treatment? @ -No Exacerbation, Progression, or Severe Exacerbation? @ -No Poses a threat to life or bodily function? How? (Chest pain, [place], [place], pneumonia, PE, COPD, DKA, ARF, appy, cholecystitis, CVA, Diverticulitis, Homicidal, Suicidal, threat to staff... and all critical care pts) @ -No - Lab Data Lab Results 11/28/22 Range/Units 09:14 Influenza Type A (PCR) Not Detected (Not Detectd) Influenza Type B (PCR) Not Detected (Not Detectd) RSV (PCR) Not Detected (Not Detectd) SARS-CoV-2 (PCR) Not Detected (Not Detectd) Disposition Clinical Impression: Rhinitis Disposition: HOME SELF-CARE Condition: Good Instructions (If sedation given, give patient instructions): Upper Respiratory Infection (ED) Is patient prescribed a controlled substance at d/c from ED?: No Referrals: Chikis Davis MD [Primary Care Provider] - 1-2 days Time of Disposition: 10:38
[2022-11-28 11:12] VITALS: BP 127/75; PULSE 77; RESP 16; TEMP 98.2
== END 2022-11-28 11:12 | disposition home or self-care (01) ==
LOC: EC 08:51
DX: J31.0 Chronic rhinitis (principal); F17.290 Nicotine dependence, other tobacco product, uncomplicated; F12.90 Cannabis use, unspecified, uncomplicated; Z20.822 Contact with and (suspected) exposure to COVID-19
CPT/HCPCS: 87636; 99283

== ENCOUNTER 2023-08-14 23:24 | Emergency (ER) | payer OTHER ==
[2023-08-15 00:10] VITALS: BP 157/94; PULSE 98; RESP 16; TEMP 98.1
--- NOTE | 2023-08-15 01:01 | ED ---
Back Pain HPI - General Chief Complaint: Back Pain/Injury Stated Complaint: lower back pain Time Seen by Provider: 08/14/23 23:54 Source: patient Limitations: no limitations - History of Present Illness Initial Comments: 33-year-old female presents to the ED with a chief complaint of low back pain. Patient reports she was cleaning the house 2 or 3 days ago and thinks she may [place]inn[place] ve twisted her back wrong. Ever since then she has had upper lower lumbar pain worse with movement. Denies urinary symptoms. Denies fever or chills. No other complaints at this time. - Related Data Previous Rx's Medication Instructions Recorded Acetaminophen-Codeine 300-30mg 1 each PO Q4H PRN #10 tablet 05/16/21 [Tylenol w/codeine #3] Baclofen [Lioresal] 10 mg PO TID PRN #20 tablet 05/16/21 Diclofenac Sodium [Voltaren] 50 mg PO TID PRN #20 tab 05/16/21 Dicyclomine [Bentyl] 10 mg PO TID PRN #15 capsule 06/06/22 Ondansetron Odt [Zofran Odt] 4 mg PO Q8HR PRN #15 tab 06/06/22 Allergies Allergy/AdvReac Type Severity Reaction Status Date / Time No Known Allergies Allergy Verified 08/14/23 23:47 Review of Systems ROS Statement: Those systems with pertinent positive or pertinent negative responses have been documented in the HPI. ROS Other: All systems not noted in ROS Statement are negative. Past Medical History Past Medical History: No Reported History Additional Past Medical History / Comment(s): Patient has had 2 vaginal deliveries. History of Any Multi-Drug Resistant Organisms: None Reported Past Surgical History: No Surgical Hx Reported Additional Past Surgical History / Comment(s): [place] tooth extraction Past Anesthesia/Blood Transfusion Reactions: No Reported Reaction Past Psychological History: No Psychological Hx Reported Smoking Status: Vaper Past Alcohol Use History: None Reported Past Drug Use History: Marijuana - Past Family History Father Family Medical History: Diabetes Mellitus General Exam Limitations: no limitations General appearance: alert, in no apparent distress Eye exam: Present: normal appearance Neck exam: Present: normal inspection Respiratory exam: Present: normal lung sounds bilaterally Cardiovascular Exam: Present: regular rate GI/Abdominal exam: Present: soft Extremities exam: Present: normal inspection Back exam: Present: other (Reproducible upper left lumbar paraspinal tenderness to palpation. No midline spinal tenderness to palpation.) Neurological exam: Present: alert, oriented X3 Skin exam: Present: warm, dry Course Vital Signs 08/14/23 23:47 Temperature 98.1 F Pulse Rate 98 Respiratory 16 Rate Blood Pressure 157/94 O2 Sat by Pulse 100 Oximetry Medical Decision Making - Medical Decision Making Was pt. sent in by a medical professional or institution (, USMAN, HIDE SPREADER, urgent care, hospital, or half-way...) When possible be specific @ -[No] Did you speak to anyone other than the patient for history (EMS, parent, family, police, friend...)? What history was obtained from this source @ -[No] Did you review nursing and triage notes (agree or disagree)? Why? @ -[I reviewed and agree with nursing and triage notes] Were old charts reviewed (outside hosp., previous admission, EMS record, old EKG, old radiological studies, urgent care reports/EKG's, half-way records)? Report findings @ -[No old charts were reviewed] Differential Diagnosis (chest pain, altered mental status, abdominal pain women, abdominal pain men, vaginal bleeding, weakness, fever, dyspnea, syncope, headache, dizziness, GI bleed, back pain, seizure, CVA, palpatations, mental health, musculoskeletal)? @ -Differential Musculoskeletal Muscular strain, contusion, ligament sprain, fracture, arthritis, septic arthritis, bursitis, cellulitis, muscle spasm, nerve compression, DVT, arterial occlusion, herpes zoster, electrolyte abnormality, tumor.... This is not meant to be in all inclusive list EKG interpreted by me (3pts min.). @ -[As above] X-rays interpreted by me (1pt min.). @ -Pending CT interpreted by me (1pt min.). @ -[None done] U/S interpreted by me (1pt. min.). @ -[None done] What testing was considered but not performed or refused? (CT, X-rays, U/S, labs)? Why? @ -[None] What meds were considered but not given or refused? Why? @ -Patient was offered analgesia however at this time declined. Did you discuss the management of the patient with other professionals (professionals i.e. , USMAN, HIDE SPREADER, lab, RT, psych nurse, social media sr strategy manager, food production machine operator, teacher, ict help desk officer, caser in)? Give summary @ -[No] Was smoking cessation discussed for >3mins.? @ -[No] Was critical care preformed (if so, how long)? @ -[No] Were there social determinants of health that impacted care today? How? (Homelessness, low income, unemployed, alcoholism, drug addiction, transportation, low edu. Level, literacy, decrease access to med. care, longterm, rehab)? @ -[No] Was there de-escalation of care discussed even if they declined (Discuss DNR or withdrawal of care, Hospice)? DNR status @ -[No] What co-morbidities impacted this encounter? (DM, HTN, Smoking, COPD, CAD, Cancer, CVA, ARF, Chemo, Hep., AIDS, mental health diagnosis, sleep apnea, morbid obesity)? @ -[None] Was patient admitted / discharged? Hospital course, mention meds given and route, prescriptions, significant lab abnormalities, going to OR and other pertinent info. @ -Left AGAINST MEDICAL ADVICE 33-year-old female presented to the ED with complaints of back pain after possib ly twisting her back wrong 3 days ago. No bladder or bowel complaints. No saddle anesthesia or incontinence. Patient left AGAINST MEDICAL ADVICE prior to completion of imaging studies. Disposition Clinical Impression: Back pain Disposition: LEFT AGAINST MEDICAL ADVICE Referrals: Chikis Davis MD [Primary Care Provider] - 1-2 days
--- NOTE | 2023-08-15 02:11 | XR ---
EXAM: XR Lumbosacral Spine, 2 or 3 Views CLINICAL HISTORY: XR Reason: upper L lumbar pain TECHNIQUE: Frontal and lateral views of the lumbar spine and sacrum. COMPARISON: No relevant prior studies available. FINDINGS: Vertebrae: The spinous processes and facets appear intact and normally aligned. No acute fracture or subluxation is seen. The lumbar spine vertebral body heights are normally maintained. No compression fracture or burst fracture is seen. Sacrum/coccyx: See below. Disc spaces: There is a partially formed disc at S1-2. The lumbar spine disc spaces are normally maintained. Soft tissues: Unremarkable. IMPRESSION: No acute findings in the lumbar spine.
== END 2023-08-15 01:56 | disposition left against medical advice (07) ==
LOC: EC 23:24
DX: M54.50 Low back pain, unspecified (principal); F17.290 Nicotine dependence, other tobacco product, uncomplicated; F12.90 Cannabis use, unspecified, uncomplicated; Z53.29 Procedure and treatment not carried out because of patient's decision for other reasons
CPT/HCPCS: 72100; 99283